=== PATIENT | female | born 1975 | race Caucasian/White ===

== ENCOUNTER 2020-04-15 16:29 | Emergency (ER) | payer OTHER ==
[~2020-04-15] VITALS: Ht 165.1 cm; Wt 75.8 kg
[~2020-04-15 16:29] MED LIST: CRESTOR20 MG PO; EPIPEN 2-P0.3 MG/0.3 IM; OMEPRAZOLE20 MG PO; PROTONIX40 M2 PO; PROZAC20 MG PO
[2020-04-15] MEDS ORDERED: CARAFATE1 GM PO (16:56)
[2020-04-15 19:36] VITALS: BP 126/73
[2020-04-16] MEDS ORDERED: NORCO 5-325 TA1 EAC2 PO (10:48)
== END 2020-04-15 19:37 | disposition left against medical advice (07) ==
LOC: M.ERS 16:29
DX: M25.561 Pain in right knee (principal); Z53.21 Procedure and treatment not carried out due to patient leaving prior to being seen by health care provider

== ENCOUNTER 2020-04-16 09:09 | Emergency (ER) | payer OTHER ==
[~2020-04-16] VITALS: Ht 165.1 cm; Wt 76.2 kg
[~2020-04-16 09:09] MED LIST changes: +CARAFATE1 GM PO
[2020-04-16] MEDS ORDERED: NORCO 5-325 TA1 EAC2 PO (10:48)
[2020-04-16 11:07] VITALS: BP 111/65
== END 2020-04-16 11:08 | disposition home or self-care (01) ==
LOC: M.ERS 09:09
DX: M25.561 Pain in right knee (principal); E78.00 Pure hypercholesterolemia, unspecified; F17.210 Nicotine dependence, cigarettes, uncomplicated; Z88.6 Allergy status to analgesic agent; Z91.030 Bee allergy status; Z90.49 Acquired absence of other specified parts of digestive tract; Z90.710 Acquired absence of both cervix and uterus

== ENCOUNTER 2020-11-18 18:00 | Emergency (ER) | payer OTHER ==
[~2020-11-18] VITALS: Ht 165.1 cm; Wt 81.7 kg
[~2020-11-18 18:00] MED LIST changes: +NORCO 5-325 TA1 EAC2 PO
[2020-11-18] MEDS ORDERED: PROTONIX40 M2 PO (18:26)
[2020-11-18] MEDS ORDERED: ZANAFLEX4 MG PO (20:07)
[2020-11-18] MEDS ORDERED: APAP W/CODEINE1 TA2 PO (20:07)
[2020-11-18 20:11] VITALS: BP 130/70
== END 2020-11-18 20:12 | disposition home or self-care (01) ==
LOC: M.ERS 18:00
DX: S70.01XA Contusion of right hip, initial encounter (principal); S09.8XXA Other specified injuries of head, initial encounter; M25.511 Pain in right shoulder; E78.00 Pure hypercholesterolemia, unspecified; K21.9 Gastro-esophageal reflux disease without esophagitis; Z90.49 Acquired absence of other specified parts of digestive tract; Z90.710 Acquired absence of both cervix and uterus; W10.8XXA Fall (on) (from) other stairs and steps, initial encounter; Y93.89 Activity, other specified; Y92.89 Other specified places as the place of occurrence of the external cause; Y99.8 Other external cause status